=== PATIENT | female | born 1955 | race Caucasian/White ===

== ENCOUNTER 2016-12-02 07:02 | Day surgery (SDC) | payer MEDICAID ==
[2016-12-02] VITALS (9 sets, daily range): BP systolic 106–125; BP diastolic 59–82; PULSE 72–84; RESP 16–19; Ht 147.3 cm; Wt 65.0 kg
[~2016-12-02] VITALS: Ht 147.3 cm; Wt 65.0 kg
[~2016-12-02 07:02] MED LIST: ACETAMINOPHEN 1000 MG/100 ML IVPB ONE; ATOR40TA68 PO; CEFAZOLIN 1 GM INJ ONE; SOD CHLORIDE 0.9% 1,000 ML IV SCH
[2016-12-02] MEDS ORDERED: CEFAZOLIN 2 GM/50 ML (PMX) 50 ML IVPB ONE (07:30)
[2016-12-02 08:34] LABS: BASOPHIL # 0.1 10^3/ul (0.0-0.1); BASOPHILS % 3.1 % (0.0-2.0); EOSINOPHILS # 0.3 10^3/ul (0.0-0.5); EOSINOPHILS % 8.9 % (0.0-7.0); HEMATOCRIT 34.8 % (37.0-47.0); HEMOGLOBIN 11.9 g/dl (12.0-16.0); LYMPHOCYTES % 33.2 % (15.0-51.0); MEAN CORPUSCULAR HEMOGLOBIN 28.9 pg (29.0-33.0); MEAN CORPUSCULAR HGB CONC 34.1 g/dl (32.0-37.0); MEAN CORPUSCULAR VOLUME 84.9 fl (82.0-101.0); MONOCYTE # 0.2 10^3/ul (0.3-0.9); MONOCYTES % 7.5 % (0.0-11.0); NEUTROPHIL # 1.5 10^3/ul (1.6-7.5); NEUTROPHILS % 47.3 % (39.0-77.0); PLATELET COUNT 270 10^3/UL (140-440); RED CELL DISTRIBUTION WIDTH 17.2 % (11.5-14.5); UNCORRECTED WBC 3.2 10^3/ul (4.8-10.8); WHITE BLOOD COUNT 3.2 10^3/ul (4.8-10.8)
[2016-12-02 08:37] LABS: CONDITION 1; LH ANALYZER COMMENTS 1
[2016-12-02 08:40] LABS: INR 1.01; PROTIME 13.3 Sec (12.2-14.2)
[2016-12-02 08:42] LABS: PARTIAL THROMBOPLASTIN TIME 29.6 Sec (25.0-35.0)
[2016-12-02 08:45] LABS: CALCIUM 9.6 mg/dl (8.4-10.2); CREATININE 0.53 mg/dl (0.44-1.00); POTASSIUM 3.7 mmol/L (3.5-5.1)
--- NOTE | 2016-12-02 08:50 | RADRPT ---
PROCEDURE: XR Chest. CLINICAL INDICATION: Preop Port-A-Cath removal TECHNIQUE: AP view of the chest was obtained. COMPARISON: 06/09/2016 FINDINGS: Right Port-A-Cath present with the tip at the SVC/right atrial region. The cardiomediastinal silhou ette is within normal limits. The lungs are clear. No pleural effusion or pneumothorax is seen. IMPRESSION: No evidence of active cardiopulmonary disease. RPTAT: VV .Sravan Israel MD, MD Date Time Electronically viewed and signed by .Sravan Israel MD, MD on 12/02/2016 08:50 .O/
[2016-12-02] MEDS ORDERED: PROPOFOL 20 ML ONE (09:21)
[2016-12-02] MEDS ORDERED: FENTAnyl 50 MCG/ML VIAL ONE (09:21)
[2016-12-02] MEDS ORDERED: KETOROLAC 30 MG INJ ONE (09:21)
[2016-12-02] MEDS ORDERED: LIDOCAINE 1%/EPI 30 ML INJ ONE (09:22)
--- NOTE | 2016-12-02 12:36 | OPR ---
DATE OF OPERATION: 12/02/2016 PREOPERATIVE DIAGNOSIS: History of breast cancer, need for Chemo-Port removal. POSTOPERATIVE DIAGNOSIS: History of breast cancer, need for Chemo-Port removal. OPERATION PERFORMED: Removal of Chemo-Port, right subclavian location. ANESTHESIA: IV sedation with local. ANESTHESIOLOGIST: Dr. Urrutia SURGEON: Sherman Gutiérrez MD SPRING FORMER HAND: None. INDICATIONS FOR PROCEDURE: The patient is a 61-year-old female previously treated for breast cancer . Her treatment was successful, and she requested removal of her port. She consented and was sched uled for surgery. DESCRIPTION OF PROCEDURE: The patient was brought to the operating theater, placed under IV sedatio n. The right anterior thorax was prepped and draped in usual sterile fashion. The patient was put in Trendelenburg position, 1% lidocaine local anesthetic with epinephrine was then injected around t he port site. Previous surgical incisional scar was then incised with 15 blade scalpel. Subcutaneo us tissue was dissected with cautery down through the pseudocapsule. The port was then elevated and gently removed while pressure was held in an infraclavicular location. The port appeared grossly i ntact. It was sent for pathologic analysis to confirm that it was grossly intact. The wound was th en irrigated. Minimal bleeding was controlled with cautery. The skin was reapproximated with 2-0 n ylon sutures in vertical mattress fashion, and a sterile dressing was applied. The patient tolerate d the procedure well. The estimated blood loss was 5 mL. There were no complications, and the bandar ent was transported in stable condition to the recovery room. Dictated By: SHERMAN GUTIÉRREZ MD TL/MALIK Conf#: [id number] DID#: [id number]
--- NOTE | 2016-12-06 10:58 | RADRPT ---
Vent Rate: 69 bpm RR Interval: 0 msec TX Interval: 168 msec QRS Duration: 72 msec QT Interval: 424 msec QTC Interval: 454 msec P-R-T [place]: 46 - 38 - 42 degrees Normal sinus rhythm Normal ECG Electronically Signed By: Austin Swan [id number]
== END 2016-12-02 11:50 | disposition home or self-care (01) ==
LOC: SDS 07:02
PROVIDERS: ATTEND Surgery Surgical Oncology
DX: Z45.2 Encounter for adjustment and management of vascular access device (principal); E11.9 Type 2 diabetes mellitus without complications; Z85.3 Personal history of malignant neoplasm of breast
CPT/HCPCS: 36590; 71010; 80048; 85025; 85610; 85730; 93005; J0131; J0690; J1885; J3010; Z7512; Z7610; 88300